=== PATIENT | male | born 1970 | race Caucasian/White ===

== ENCOUNTER 2022-01-29 11:23 | Emergency (ER) | payer BC ==
[~2022-01-29] VITALS: Ht 177.8 cm; Wt 81.6 kg
[2022-01-29] MEDS ORDERED: NOXI1TAB PO (11:34)
[2022-01-29] MEDS ORDERED: FISH7.5C PO (11:34)
[2022-01-29] MEDS ORDERED: PROT1TAB2 PO (11:34)
[2022-01-29] MEDS ORDERED: LEXA1TAB2 PO (11:34)
[2022-01-29] MEDS ORDERED: CETI10CH PO (11:34)
[2022-01-29] MEDS ORDERED: CEPH500T PO (12:16)
[2022-01-29] MEDS ORDERED: BOOSTRIX/ADACEL VACCINE (DIPHTH/PERTUSS/ACELL/TETANUS) 0.5ML SYR IM ONE (12:25)
[2022-01-29 12:33] VITALS: BP 118/69
== END 2022-01-29 12:53 | disposition home or self-care (01) ==
LOC: M ED 11:23
DX: S61.300A Unspecified open wound of right index finger with damage to nail, initial encounter (principal); S61.302A Unspecified open wound of right middle finger with damage to nail, initial encounter; W31.2XXA Contact with powered woodworking and forming machines, initial encounter; K21.9 Gastro-esophageal reflux disease without esophagitis; F41.9 Anxiety disorder, unspecified; Z96.651 Presence of right artificial knee joint; Y92.009 Unspecified place in unspecified non-institutional (private) residence as the place of occurrence of the external cause; Y93.9 Activity, unspecified; Y99.9 Unspecified external cause status; Z79.899 Other long term (current) drug therapy